=== PATIENT | male | born 1960 | race Caucasian/White ===

== ENCOUNTER 2021-03-28 09:53 | Emergency (ER) | payer OTHER, SELFPAY ==
--- NOTE | 2021-03-28 | ECG_ITS ---
Test Reason : CHEST PAIN Blood Pressure : / mmHG Vent. Rate : 088 BPM Atrial Rate : 072 BPM P-R Int : 000 ms QRS Dur : 124 ms QT Int : 376 ms P-R-T Axes : 000 050 034 degrees QTc Int : 454 ms Atrial fibrillation Right bundle branch block Abnormal ECG When compared with ECG of 22-DEC-2015 09:18, Atrial fibrillation has replaced Sinus rhythm Referred By: Generic ED Physician Electronically Signed By:PONCHO BERNAL MD
--- NOTE | ~2021-03-28 | XR_ITS ---
EXAMINATION: XR CHEST CLINICAL INFORMATION: SOB COMPARISON: Chest 03/21/2016 TECHNIQUE: Frontal view of the chest was obtained. FINDINGS: The lungs are well-expanded and clear of acute pneumonic process. There is focal linear stranding right upper lobe likely scarring or atelectasis. Heart size and pulmonary vascularity is normal. No gross bony abnormality seen. There is total right shoulder prosthesis and alignment. XR/XR chest 1V IMPRESSION: Focal linear atelectasis or chronic scarring right upper lobe is stable. No acute pneumonic process seen.
--- NOTE | ~2021-03-28 | CT_ITS ---
EXAMINATION: CTA CHEST CT ABDOMEN WITH CONTRAST CLINICAL INFORMATION: Tachycardia, elevated D-dimer. Left-sided abdominal pain. COMPARISON: None. TECHNIQUE: 5 mm thin axial and reformatted 3 mm thin sagittal, coronal and oblique images of chest were obtained following rapid IV 100 mL Omnipaque 350. Subsequently, 5 minutes and axial images of abdomen and pelvis and reconstructed 3 mm thin images of abdomen and pelvis were obtained without contrast. FINDINGS: CHEST: There is good opacification of pulmonary artery and its branches without intraluminal filling defect or narrowing. There is mild enlargement of left pulmonary artery likely secondary to pulmonary venous hypertension. The thoracic aorta is of normal caliber without any evidence of aneurysm. Mild atherosclerotic calcification is seen. The central trachea and the bronchi widely patent. No abnormal size mediastinal or hilar lymph nodes seen. There is mild centrilobular emphysematous changes of both lungs especially both upper lobes. There is a large bulla in the right upper lobe adjacent compressive atelectasis. No pulmonary nodule, mass or consolidation seen. There is no pleural effusion or thickening. The axilla and the chest wall appears unremarkable. ABDOMEN AND PELVIS: Visualized liver is normal size, contour and density. No intrahepatic ductal dilatation seen. No focal lesion seen. The gallbladder is unremarkable. Visualized spleen is normal size and density. Visualized pancreas and bilateral adrenal glands are unremarkable. Both kidneys are normal size, shape and contour. No enhancing lesion, cyst, radiopaque calculi or hydronephrosis seen. The abdominal aorta is normal caliber. No retroperitoneal mass or lymphadenopathy seen. There is scattered stool and gas seen throughout the colon without significant distention. The small bowel loops are normal caliber. The stomach is nondistended and appears unremarkable. There is no free air or free fluid. The abdominal wall appears unremarkable. Imaging of the pelvis reveals normal prostate gland. The urinary bladder is mildly distended. No free fluid seen. Bone windows reveal no lytic or sclerotic process seen. There are degenerative disc changes with vacuum disc phenomena and ventral spondylosis L4-L5 and L5-S1 disc level. CT/CT angio chest PE protocol IMPRESSION: No evidence of PE. No evidence of aortic dissection. Slightly enlarged left pulmonary artery suggestive of pulmonary venous hypertension or focal dilation. Centrilobular emphysema with a moderate-sized bullae in the right upper lobe and adjacent compressive atelectasis. Mild constipation without obstruction. No acute intra-abdominal process seen. Mild prostate enlargement.
[2021-03-28 10:11] VITALS: BP 141/74; PULSE 86; RESP 24; TEMP 36.8; O2SAT 98; BMI 23.0
[2021-03-28 10:18] VITALS: BP 141/74; PULSE 98; RESP 21; TEMP 36.9; O2SAT 100
--- NOTE | 2021-03-28 10:21 | PC.NURSE ---
Addendum entered by Blas Jo RN 03/28/21 10:59: lung sounds diminished throughout. The pt has bilateral LL redness, he reports that is his baseline. No edema noted. Iv line established, labs drawn, meds given as documented. xray at bedside. Awaiting lab results. Original Note: Pt alert and oriented x3, Pt reports chest pain/sob starting about a month ago he states it is worse starting this morning. He reports starting Eliquis this morning, he does not take any other meds. The pt also reports blurry vision both eyes.
--- NOTE | 2021-03-28 10:25 | ED_ITS ---
HPI - Chest Pain General Chief Complaint: Chest Pain Stated Complaint: sob Time Seen by Provider: 03/28/21 10:13 Source: patient and family Mode of arrival: ambulatory Limitations: no limitations History of Present Illness HPI narrative: 60-year-old male with a past medical history of COPD, alcohol abuse, AFib recently diagnosed on March 14 and started his 1st dose of Eliquis this morning here with acute on chronic chest discomfort with shortness of breath over the last 1-2 days. He tells me for the last few months he has had intermittent chest pain and shortness of breath which seems worsened with activity. He also has a chronic cough with productive yellow sputum. Over the last 1-2 days this has worsened or he feels like he is short of breath even without exertion. He denies any leg swelling or pain. No weight gain. He has had some lower abdominal discomfort for the last month and was seen by his primary care doctor. He tells me that he had an outpatient CT scan but never found out what the results were. He has no associated vomiting or diarrhea or urinary symptoms or fevers or chills with this. He does smoke cigarettes. He drinks 6-8 beers a day and his last drink was yesterday. MD complaint: chest pain and chest discomfort Related Data Previous Rx's Medication Instructions Recorded albuterol sulfate 2 puff INHALATION QID PRN #6.7 g 03/28/21 prednisone 40 mg PO DAILY #8 tab 03/28/21 Allergies Allergy/AdvReac Type Severity Reaction Status Date / Time No Known Allergies Allergy Unverified 06/16/20 15:05 [No Known Allergies*] Review of Systems Review of Systems: Yes all other systems are reviewed and are negative Constitutional: Constitutional: Reports no additional constitutional complaints, Denies body ache(s), Denies chills, Denies fever(s), Denies headache(s) and Denies weakness Eyes: Eyes: Reports no additional eye complaints and Denies change in vision ENT: Reports system reviewed and no additional complaints, except as documented, Denies dizziness, Denies headache(s), Denies nasal congestion, Denies nasal discharge and Denies neck pain Cardiovascular: Cardiovascular: Reports no additional cardiovascular complaints, Reports chest pain, Denies leg edema and Reports dyspnea Respiratory: Respiratory: Reports no additional respiratory complaints, Reports cough and Reports dyspnea Gastrointestinal: Gastrointestinal: Reports no additional gastrointestinal complaints, Reports abdominal pain, Denies diarrhea, Denies nausea and Denies vomiting Genitourinary: Genitourinary: Denies urinary incontinence Musculoskeletal: Musculoskeletal: Reports no additional musculoskeletal complaints, Denies back pain, Denies arthralgias, Denies joint swelling, Denies neck pain, Denies numbness and Denies tingling Integumentary/Breasts: Skin/Breast: Reports system reviewed and no additional complaints, except as docu and Denies rash Neurologic: Reports system reviewed and no additional complaints, except as documented, Denies Abnormal speech present, Denies dizziness, Denies headache(s) , Denies numbness, Denies tingling and Denies weakness PMFSH Past Medical History Attestation statement: The following information was validated with the patient. Source: old records reviewed and nursing notes reviewed Medical History (Updated 03/28/21 @ 14:47 by Johanne Galarza NP) Afib Alcohol abuse COPD (chronic obstructive pulmonary disease) Social History Social History (Updated 03/28/21 @ 10:28 by Johanne Galarza NP) Alcohol intake: current Alcohol intake frequency: 3 or more drinks per day Alcohol type: beer Patient Tobacco Use Status: Current everyday Tobacco user Advance Directives: No Advance Directives Information Provided: No Physical Exam Vital Signs: Vital Signs: Last Vital Signs Temp 98.4 F 03/28/21 10:18 Pulse 88 03/28/21 13:11 Resp 13 03/28/21 13:11 BP 137/71 03/28/21 13:11 Pulse Ox 98 03/28/21 13:11 Body Mass Index 23.0 Const: General: poor hygiene and tired appearing Orientation/consciousness: patient oriented x3 Limitations: no limitations HENMT: Head: Yes normal to inspection Ears: hearing grossly normal bilaterally General nose exam: Normal external nose present Face and sinus: Yes normal facial exam Mouth: Normal oral and palatal mucosa present Throat: Yes posterior oropharynx normal Eyes: General: appearance normal, both eyes and all related structures Pupils: Equal, round and reactive pupils present Neck: Neck: Yes normal visual inspection Chest: Chest palpation & inspection: normal inspection of the chest and tenderness (central chest tender to palp) Resp: Other: Tachypnea noted, speaking short phrases, prolonged expirations, mild expiratory wheezing Cardio: Rate: regular rate Rhythm: regular rhythm Peripheral pulses: Peripheral pulses 2+ throughout GI: Inspection: Yes normal to inspection Palpation (GI): Soft to palpation, Tenderness to palpation present (GI) ( bilateral lower quadrant tenderness with no rebound) and Guarding due to palpation present (GI) Auscultation: normal bowel sounds Back/Spine/Pelvis: Thoracic/Lumbar Spine: thoracic and lumbar spine normal to inspection Skin: General skin exam: no rashes or lesions noted Neuro: General: patient oriented x3, no focal motor deficits and normal sensation to monofilament Cranial nerves: Yes Equal, round and reactive pupils present Cognition (Neuro): normal cognition Speech: No Abnormal speech present Gait exam (Neuro): Normal gait present Motor exam (neuro): 5/5 motor strength present throughout Extrem: Other: lower extremity discoloration noted consistent with peripheral vascular disease General: Yes normal to inspection, Yes no pedal edema and Yes no calf tenderness Course Course Course Narrative: 60-year-old male here with acute on chronic chest pain, shortness of breath, productive cough for the last 1-2 days with a recent diagnosis of AFib this month. Took his 1st dose of Eliquis this morning. He tells me he is here because his shortness of breath is much worsened over the last 24 hours for now he feels short of breath even at rest. Also complaining of some lower abdominal discomfort which she has had for approximately a month with no other symp\toms. On arrival the patient is tachypneic, stable saturations, prolonged expirations, mild exp wheezing, also bilateral LQ adominal pain on exam with guarding. will need labs, EKG, chest x-ray, COVID screen, CTA, CT A/P. will give DuoNeb, Solu-Medrol, analgesia. 1430- CTs negative with exception of emphysema changes and likely pulmonary hypertension. Labs show mildly elevated lactic acid which is from albuterol use and not infection. Improved with recheck. COVID screen negative. EKG shows no ischemic changes. Troponin x2 delta. likely COPD exacerbation. Will discharge patient home with course of prednisone. He did ambulate in the emergency department with no tachypnea and an oxygen saturation of greater than 96%. He is feeling much improved. R ecommended following up with his wellness consultant. Reviewed worrisome signs and symptoms and when to return to the emergency department. Comfortable discharge home. MDM - Chest Pain MDM Narrative Medical decision making narrative: ACS, pneumonia, CHF, PE, Divert Medical Records Data Attestation: I reviewed the patient's medical records. Lab Data Attestation: I reviewed the patient's lab results. Result diagrams: 03/28/21 10:37 03/28/21 10:37 Labs: Lab Results 03/28/21 03/28/21 03/28/21 Range/Units 10:37 10:37 10:37 WBC 4.5 L (4.8-10.8) X10*3/uL RBC 3.90 L (4.60-5.80) X10*6/uL Hgb 14.4 (14.0-18.0) g/dl Hct 41.3 L (42-52) % MCV 105.9 H (80-98) fL MCH 36.9 H (27.0-33.0) pg MCHC 34.9 (31.0-36.0) g/dl RDW 12.6 (11.0-16.0) % Plt Count 152 L (160-400) X10*3/uL MPV 8.8 L (9.4-12.4) fL Immature Gran % (Auto) 0.2 (0.0-0.4) % Neut % (Auto) 65.6 (45-73) % Lymph % (Auto) 25.6 (20-40) % [place] % (Auto) 7.3 (2-11) % Eos % (Auto) 0.2 (0-4) % Baso % (Auto) 1.1 (0-2) % Lymph # (Auto) 1.2 (1.2-4.9) X10*3/uL [place] # (Auto) 0.3 (0.1-1.2) X10*3/uL Eos # (Auto) 0.0 (0.0-0.4) X10*3/uL Baso # (Auto) 0.1 (0.0-0.2) X10*3/uL Abs Immat Gran (auto) 0.01 (0.00-0.03) X10*3/uL Absolute Neuts (auto) 3.0 (2.0-8.3) X10*3/uL Absolute Nucleated RBC 0.000 (0.0-0.012) X10*3/uL Nucleated RBC % (auto) 0.0 (0.0-0.2) /100WBC PT (10.8-13.0) SEC INR (0.9-1.1) D-Dimer NG/ML Sodium 139 (135-145) mmol/L Potassium 4.0 (3.3-5.1) mmol/L Chloride 102 (96-108) mmol/L Carbon Dioxide 26 (22-29) mmol/L Anion Gap 15 (12-20) BUN 5 L (9-16) mg/dL Creatinine 0.76 (0.5-1.4) mg/dL Estim Creat Clear Calc 111.3 Estimated GFR > 60 Random Glucose 121 H (60-115) mg/dL Lactic Acid (0.5-2.0) mmol/L Lactic Acid Fup @ 2Hr (0.5-2.0) mmol/L Calcium 9.6 (8.4-10.2) mg/dL Magnesium (1.6-2.6) mg/dL Total Bilirubin 0.8 (0.0-1.0) mg/dL Direct Bilirubin 0.3 (0.0-0.5) mg/dL AST 89 H (5-37) U/L ALT 62 H (0-40) U/L Alkaline Phosphatase 62 (39-117) U/L Troponin I High Sens (<3.5-35.0) ng/L B-Natriuretic Peptide (<100) pg/mL Total Protein 7.6 (6.5-8.0) g/dL Albumin 4.2 (3.5-5.0) g/dL Lipase (8-78) U/L Ethyl Alcohol mg/dL COVID-19 ([facility]) Negative (Negative) COVID-19 Clin Com See Note 03/28/21 03/28/21 03/28/21 Range/Units 10:37 10:37 10:37 WBC (4.8-10.8) X10*3/uL RBC (4.60-5.80) X10*6/uL Hgb (14.0-18.0) g/dl Hct (42-52) % MCV (80-98) fL MCH (27.0-33.0) pg MCHC (31.0-36.0) g/dl RDW (11.0-16.0) % Plt Count (160-400) X10*3/uL MPV (9.4-12.4) fL Immature Gran % (Auto) (0.0-0.4) % Neut % (Auto) (45-73) % Lymph % (Auto) (20-40) % [place] % (Auto) (2-11) % Eos % (Auto) (0-4) % Baso % (Auto) (0-2) % Lymph # (Auto) (1.2-4.9) X10*3/uL [place] # (Auto) (0.1-1.2) X10*3/uL Eos # (Auto) (0.0-0.4) X10*3/uL Baso # (Auto) (0.0-0.2) X10*3/uL Abs Immat Gran (auto) (0.00-0.03) X10*3/uL Absolute Neuts (auto) (2.0-8.3) X10*3/uL Absolute Nucleated RBC (0.0-0.012) X10*3/uL Nucleated RBC % (auto) (0.0-0.2) /100WBC PT 15.0 H (10.8-13.0) SEC INR 1.3 H (0.9-1.1) D-Dimer 311 NG/ML Sodium (135-145) mmol/L Potassium (3.3-5.1) mmol/L Chloride (96-108) mmol/L Carbon Dioxide (22-29) mmol/L Anion Gap (12-20) BUN (9-16) mg/dL Creatinine (0.5-1.4) mg/dL Estim Creat Clear Calc Estimated GFR Random Glucose (60-115) mg/dL Lactic Acid 2.9 H* (0.5-2.0) mmol/L Lactic Acid Fup @ 2Hr (0.5-2.0) mmol/L Calcium (8.4-10.2) mg/dL Magnesium 1.8 (1.6-2.6) mg/dL Total Bilirubin (0.0-1.0) mg/dL Direct Bilirubin (0.0-0.5) mg/dL AST (5-37) U/L ALT (0-40) U/L Alkaline Phosphatase (39-117) U/L Troponin I High Sens (<3.5-35.0) ng/L B-Natriuretic Peptide (<100) pg/mL Total Protein (6.5-8.0) g/dL Albumin (3.5-5.0) g/dL Lipase 14 (8-78) U/L Ethyl Alcohol mg/dL COVID-19 ([facility]) (Negative) COVID-19 Clin Com 03/28/21 03/28/21 03/28/21 Range/Units 10:37 10:37 13:25 WBC (4.8-10.8) X10*3/uL RBC (4.60-5.80) X10*6/uL Hgb (14.0-18.0) g/dl Hct (42-52) % MCV (80-98) fL MCH (27.0-33.0) pg MCHC (31.0-36.0) g/dl RDW (11.0-16.0) % Plt Count (160-400) X10*3/uL MPV (9.4-12.4) fL Immature Gran % (Auto) (0.0-0.4) % Neut % (Auto) (45-73) % Lymph % (Auto) (20-40) % [place] % (Auto) (2-11) % Eos % (Auto) (0-4) % Baso % (Auto) (0-2) % Lymph # (Auto) (1.2-4.9) X10*3/uL [place] # (Auto) (0.1-1.2) X10*3/uL Eos # (Auto) (0.0-0.4) X10*3/uL Baso # (Auto) (0.0-0.2) X10*3/uL Abs Immat Gran (auto) (0.00-0.03) X10*3/uL Absolute Neuts (auto) (2.0-8.3) X10*3/uL Absolute Nucleated RBC (0.0-0.012) X10*3/uL Nucleated RBC % (auto) (0.0-0.2) /100WBC PT (10.8-13.0) SEC INR (0.9-1.1) D-Dimer NG/ML Sodium (135-145) mmol/L Potassium (3.3-5.1) mmol/L Chloride (96-108) mmol/L Carbon Dioxide (22-29) mmol/L Anion Gap (12-20) BUN (9-16) mg/dL Creatinine (0.5-1.4) mg/dL Estim Creat Clear Calc Estimated GFR Random Glucose (60-115) mg/dL Lactic Acid (0.5-2.0) mmol/L Lactic Acid Fup @ 2Hr (0.5-2.0) mmol/L Calcium (8.4-10.2) mg/dL Magnesium (1.6-2.6) mg/dL Total Bilirubin (0.0-1.0) mg/dL Direct Bilirubin (0.0-0.5) mg/dL AST (5-37) U/L ALT (0-40) U/L Alkaline Phosphatase (39-117) U/L Troponin I High Sens 31.0 25.5 (<3.5-35.0) ng/L B-Natriuretic Peptide 133 H (<100) pg/mL Total Protein (6.5-8.0) g/dL Albumin (3.5-5.0) g/dL Lipase (8-78) U/L Ethyl Alcohol 45 mg/dL COVID-19 ([facility]) (Negative) COVID-19 Clin Com 03/28/21 Range/Units 13:25 WBC (4.8-10.8) X10*3/uL RBC (4.60-5.80) X10*6/uL Hgb (14.0-18.0) g/dl Hct (42-52) % MCV (80-98) fL MCH (27.0-33.0) pg MCHC (31.0-36.0) g/dl RDW (11.0-16.0) % Plt Count (160-400) X10*3/uL MPV (9.4-12.4) fL Immature Gran % (Auto) (0.0-0.4) % Neut % (Auto) (45-73) % Lymph % (Auto) (20-40) % [place] % (Auto) (2-11) % Eos % (Auto) (0-4) % Baso % (Auto) (0-2) % Lymph # (Auto) (1.2-4.9) X10*3/uL [place] # (Auto) (0.1-1.2) X10*3/uL Eos # (Auto) (0.0-0.4) X10*3/uL Baso # (Auto) (0.0-0.2) X10*3/uL Abs Immat Gran (auto) (0.00-0.03) X10*3/uL Absolute Neuts (auto) (2.0-8.3) X10*3/uL Absolute Nucleated RBC (0.0-0.012) X10*3/uL Nucleated RBC % (auto) (0.0-0.2) /100WBC PT (10.8-13.0) SEC INR (0.9-1.1) D-Dimer NG/ML Sodium (135-145) mmol/L Potassium (3.3-5.1) mmol/L Chloride (96-108) mmol/L Carbon Dioxide (22-29) mmol/L Anion Gap (12-20) BUN (9-16) mg/dL Creatinine (0.5-1.4) mg/dL Estim Creat Clear Calc Estimated GFR Random Glucose (60-115) mg/dL Lactic Acid (0.5-2.0) mmol/L Lactic Acid Fup @ 2Hr 1.6 (0.5-2.0) mmol/L Calcium (8.4-10.2) mg/dL Magnesium (1.6-2.6) mg/dL Total Bilirubin (0.0-1.0) mg/dL Direct Bilirubin (0.0-0.5) mg/dL AST (5-37) U/L ALT (0-40) U/L Alkaline Phosphatase (39-117) U/L Troponin I High Sens (<3.5-35.0) ng/L B-Natriuretic Peptide (<100) pg/mL Total Protein (6.5-8.0) g/dL Albumin (3.5-5.0) g/dL Lipase (8-78) U/L Ethyl Alcohol mg/dL COVID-19 ([facility]) (Negative) COVID-19 Clin Com Imaging Data Chest x-ray: Attestation: I personally reviewed and interpreted this imaging study as follows: Radiologist's impression: FINDINGS: The lungs are well-expanded and clear of acute pneumonic process. There is focal linear stranding right upper lobe likely scarring or atelectasis. Heart size and pulmonary vascularity is normal. No gross bony abnormality seen. There is total right shoulder prosthesis and alignment. XR/XR chest 1V IMPRESSION: Focal linear atelectasis or chronic scarring right upper lobe is stable. No acute pneumonic process seen. Ct scan chest/abdomen: Attestation: I personally reviewed and interpreted this imaging study as follows: Radiologist's impression: MPRESSION: No evidence of PE. No evidence of aortic dissection. Slightly enlarged left pulmonary artery suggestive of pulmonary venous hypertension or focal dilation. Centrilobular emphysema with a moderate-sized bullae in the right upper lobe and adjacent compressive atelectasis. Mild constipation without obstruction. No acute intra-abdominal process seen. Mild prostate enlargement. ECG Data ECG #1: Attestation: I personally reviewed and interpreted this ECG as follows: ECG interpretation date: 03/28/21 ECG interpretation time: 10:03 Interpretation: AFib with rate of 88, right bundle branch block, normal QT Discharge Plan Discharge Clinical Impression: COPD (chronic obstructive pulmonary disease), Abdominal pain Patient Disposition: Home, Self-Care Instructions: COPD (Chronic Obstructive Pulmonary Disease) (ED), Abdominal Pain (ED) Additional Instructions: your CT scan shows COPD your abdominal CT scan looks negative your lab work looks okay start prednisone tomorrow continue your daily inhaler but use the rescue inhaler as needed follow-up with your wellness consultant and primary care doctor Prescriptions: New prednisone 20 mg tablet 40 mg PO DAILY Qty: 8 RF: 0 albuterol sulfate 90 mcg/actuation HFA aerosol inhaler 2 puff inhalation QID PRN (Reason: shortness of breath or wheezing) Qty: 6.7 RF: 0 Referrals: Soraida Talamantes MD [Primary Care Provider] - 2 days Interventions: ED Discharge Assessment Last Done: 03/28/21 15:10 Discharge Date/Time: 03/28/21 15:11
[2021-03-28] MEDS: Albuterol/Iprat 2.5/0.5MG 3 ML AMPUL.NEB INHALE (10:34)
[2021-03-28 10:36] VITALS: PULSE 91; O2SAT 98
[2021-03-28 10:47] LABS: MANUAL DIFF FLAG NO
[2021-03-28 10:52] LABS: Basophils Absolute Auto 0.1 X10*3/uL (0.0-0.2); Basophils Percent Auto 1.1 % (0-2); Eosinophils Percent Auto 0.2 % (0-4); Hematocrit 41.3 % (42-52); Hemoglobin 14.4 g/dl (14.0-18.0); Imm Gran Abs Auto 0.01 X10*3/uL (0.00-0.03); Imm Gran Pct Auto 0.2 % (0.0-0.4); Lymphocytes Absolute Auto 1.2 X10*3/uL (1.2-4.9); Lymphocytes Percent Auto 25.6 % (20-40); Mean Corpuscular HGB Conc 34.9 g/dl (31.0-36.0); Mean Corpuscular Hemoglobin 36.9 pg (27.0-33.0); Mean Corpuscular Volume 105.9 fL (80-98); Mean Platelet Volume 8.8 fL (9.4-12.4); Monocytes Absolute Auto 0.3 X10*3/uL (0.1-1.2); Monocytes Percent Auto 7.3 % (2-11); Neutrophils Percent Auto 65.6 % (45-73); Platelet Count 152 X10*3/uL (160-400); Red Cell Distribution Width 12.6 % (11.0-16.0); White Blood Count 4.5 X10*3/uL (4.8-10.8)
[2021-03-28] MEDS: methylPREDNISolone Sod Succ 125 MG/2 ML VIAL IVPUSH (10:52)
[2021-03-28] MEDS: Morphine Sulfate 4 MG/ML CARTRIDGE IVPUSH (10:52)
[2021-03-28 10:55] LABS: INTERNATIONAL NORM RATIO 1.3 (0.9-1.1)
[2021-03-28 10:58] LABS: D Dimer 311 NG/ML
[2021-03-28 11:07] LABS: Ethanol 45 mg/dL
[2021-03-28 11:08] LABS: COVID-19 Test Negative (Negative); IDNOW Serial# 9DD0AD1C
[2021-03-28 11:11] LABS: Alanine Aminotransferase 62 U/L (0-40); Albumin Level 4.2 g/dL (3.5-5.0); Alkaline Phosphatase 62 U/L (39-117); Anion Gap 15 (12-20); Aspartate Amino Transferase 89 U/L (5-37); Bilirubin Direct 0.3 mg/dL (0.0-0.5); Bilirubin Total 0.8 mg/dL (0.0-1.0); Blood Urea Nitrogen 5 mg/dL (9-16); Calcium 9.6 mg/dL (8.4-10.2); Carbon Dioxide 26 mmol/L (22-29); Chloride 102 mmol/L (96-108); Creatinine Clr Calc Pharmacy 111.3; Estimated Glomerular Filt Rate > 60; Glucose Random 121 mg/dL (60-115); Sodium 139 mmol/L (135-145); Total Protein 7.6 g/dL (6.5-8.0)
[2021-03-28 11:12] LABS: Lipase 14 U/L (8-78); Magnesium 1.8 mg/dL (1.6-2.6)
[2021-03-28 11:13] LABS: Lactic Acid 2.9 mmol/L (0.5-2.0)
[2021-03-28 11:14] LABS: B Type Natriuretic Peptide 133 pg/mL (<100)
[2021-03-28] MEDS: 0.9 % Sodium Chloride 1,000 ML 999 ML IV (11:44)
[2021-03-28 11:46] VITALS: BP 121/73; PULSE 93; RESP 22; O2SAT 96
[2021-03-28 12:44] LABS: Reflex Lactate? Lactic Acid Added
[2021-03-28] MEDS: iohexoL 350 MG/ML 100 ML INFUS..BTL 85 ML IV (12:49)
[2021-03-28 13:11] VITALS: BP 137/71; PULSE 88; RESP 13; O2SAT 98
[2021-03-28 13:46] LABS: ~Lactic Acid-LAB USE ONLY 1.6 mmol/L (0.5-2.0)
[2021-03-28 13:55] LABS: Troponin-I High Sensitivity 25.5 ng/L (<3.5-35.0)
== END 2021-03-28 15:11 | disposition home or self-care (01) ==
PROVIDERS: Nurse Practitioner Family; Emergency Provider Emergency Medicine Emergency Medical Services; PCP Internal Medicine
DX: J44.9 Chronic obstructive pulmonary disease, unspecified (principal); R06.02 Shortness of breath; R10.9 Unspecified abdominal pain; I48.91 Unspecified atrial fibrillation; F17.210 Nicotine dependence, cigarettes, uncomplicated; Z79.899 Other long term (current) drug therapy; Z20.822 Contact with and (suspected) exposure to COVID-19
CPT/HCPCS: 36415; 71045; 71275; 74177; 80048; 80076; 82077; 83605; 83690; 83735; 83880; 84484; 85025; 85379; 85610; 87040; 87635; 93005; 94640; 96361; 96374; 96375; 99285; J2270; J2930; Q9967

== ENCOUNTER 2022-11-22 16:36 | Emergency (ER) | payer MEDICARE, MEDICAID, SELFPAY ==
--- NOTE | ~2022-11-22 | CT_ITS ---
EXAMINATION: GI BLEED WITH AND WITHOUT IV CONTRAST CLINICAL INFORMATION: Blood per rectum. Abdominal pain. COMPARISON: Previous CT of the abdomen and pelvis most recent February 2021 TECHNIQUE: Axial images through the abdomen and pelvis without IV contrast. Axial images through the abdomen and pelvis following following IV contrast and arterial phase and delayed two-minute imaging following IV contrast was performed. This CT examination was performed using dose optimization techniques as appropriate, variously including the following: *Automated exposure control *Adjustment of mA and/or kV according to patient size (this includes techniques or standardized protocols for targeted exams where dose is matched to indication/reason for exam; i.e. extremities or head) *Use of iterative reconstruction technique FINDINGS: There is active GI bleeding seen in the right side of the distal sigmoid colon or upper rectum for example axial image 74 series 7. Delayed images in this region demonstrate increased enhancement. There is mild wall thickening seen in this region. Small and large bowel is otherwise unremarkable. The appendix is unremarkable. 12 mm nodule at the right lung base axial image 11 series 13. The liver is low in attenuation suggestive of fatty infiltration. No focal liver lesion or biliary duct dilatation. Normal gallbladder. Normal spleen. Normal pancreas. Normal adrenal glands and kidneys. Severe atherosclerotic disease. No aneurysm. No ascites or adenopathy. No hernia. Review of bone windows demonstrates degenerative changes of the spine and scoliosis. CT/CT gi bleed abd pel wo/w IVcon IMPRESSION: Active GI bleeding in the distal sigmoid colon or upper rectum. 12 mm nodule in the right lower lobe adjacent to the diaphragm. Follow-up chest CT scan recommended. Findings were communicated to Dr. Peace by telephone on 09/21/2023 8:12 PM
--- NOTE | 2022-11-22 16:40 | ED_ITS ---
HPI - General Adult General Chief complaint: Abdominal Pain <Mary Ruiz CNP - Last Filed: 11/22/22 16:44> Stated complaint: bloody stools <Mary Ruiz CNP - Last Filed: 11/22/22 16:44> Time Seen by Provider: 11/22/22 19:59 <Mary Ruiz CNP - Last Filed: 11/22/22 16:44> Source: patient <Darek Peace MD - Last Filed: 11/22/22 21:55> Mode of arrival: ambulatory <Darek Peace MD - Last Filed: 11/22/22 21:55> Limitations: no limitations <Darek Peace MD - Last Filed: 11/22/22 21:55> History of Present Illness HPI narrative: 62-year-old male who presents emergency department for evaluation of 4 episodes of bright red blood per rectum. The patient is on Eliquis for atrial fibrillation. He states this is 1st episode was at 02:30 hours. He states that he woke up and there was blood on his bed sheets. He states the 2nd episode was around 06:00 hours, when he went to the bathroom he states that he had a large amount of bright red blood in the toilet bowl. He had 2 more episodes and then came to the emergency department for evaluation. The patient does take Eliquis for atrial fibrillation and he did take his dose at 06:00 hours. he states that he was feeling lightheaded, dizzy and anxious. He denied abdominal pain. This is 1st episode of a GI bleed. <Darek Peace MD - Last Filed: 11/22/22 21:55> Related Data Home medications: Previous Rx's Medication Instructions Recorded albuterol sulfate 90 mcg/actuation 2 puff inhalation QID PRN 03/28/21 aerosol inhaler shortness of breath or wheezing #6.7 grams prednisone 20 mg tablet 40 mg PO DAILY #8 tabs 03/28/21 <Mary Ruiz CNP - Last Filed: 11/22/22 16:44> Allergies/adverse reactions: Allergies Allergy/AdvReac Type Severity Reaction Status Date / Time No Known Allergies Allergy Unverified 06/16/20 15:05 [No Known Allergies*] <Mary Ruiz CNP - Last Filed: 11/22/22 16:44> Review of Systems Review of Systems: Yes all other systems are reviewed and are negative <Darek Peace MD - Last Filed: 11/22/22 21:55> [facility] Past Medical History [facility] Narrative: Social history: Patient smokes 1/2 pack of cigarettes per day times 40 years. He drinks 3-4 beers per day. He smokes marijuana daily. <Darek Peace MD - Last Filed: 11/22/22 21:55> Medical History: Medical History (Updated 11/22/22 @ 21:55 by Darek Peace MD) Afib Alcohol abuse COPD (chronic obstructive pulmonary disease) <Mary Ruiz CNP - Last Filed: 11/22/22 16:44> Social History Social History: Social History (Updated 03/28/21 @ 10:28 by Johanne Kapadia NP) Alcohol intake: current Alcohol intake frequency: 3 or more drinks per day A lcohol type: beer Patient Tobacco Use Status: Current everyday Tobacco user Advance Directives: No Advance Directives Information Provided: No <Mary Ruiz CNP - Last Filed: 11/22/22 16:44> Physical Exam ED Vital Signs: Vital Signs - 24 hr 11/22/22 16:41 11/22/22 17:14 11/22/22 17:54 Temperature 98.3 F Pulse Rate 91 93 88 Respiratory Rate 16 16 18 Blood Pressure 150/81 H 113/60 Pulse Oximetry 97 96 96 Oxygen Delivery Method Room Air Room Air Room Air 11/22/22 18:35 11/22/22 21:06 Temperature Pulse Rate 92 92 Respiratory Rate 14 18 Blood Pressure 122/71 136/82 Pulse Oximetry 97 97 Oxygen Delivery Method Room Air Room Air BMI result Body Mass Index 24.4 <Mary Ruiz CNP - Last Filed: 11/22/22 16:44> Vital Signs - 24 hr 11/22/22 16:41 11/22/22 17:14 11/22/22 17:54 Temperature 98.3 F Pulse Rate 91 93 88 Respiratory Rate 16 16 18 Blood Pressure 150/81 H 113/60 Pulse Oximetry 97 96 96 Oxygen Delivery Method Room Air Room Air Room Air 11/22/22 18:35 11/22/22 21:06 Temperature Pulse Rate 92 92 Respiratory Rate 14 18 Blood Pressure 122/71 136/82 Pulse Oximetry 97 97 Oxygen Delivery Method Room Air Room Air BMI result Body Mass Index 24.4 <Darek Peace MD - Last Filed: 11/22/22 21:55> Const General: cooperative and no acute distress <Darek Peace MD - Last Filed: 11/22/22 21:55> Orientation/consciousness: oriented to person and oriented to place <Darek Peace MD - Last Filed: 11/22/22 21:55> Limitations: no limitations <Darek Peace MD - Last Filed: 11/22/22 21:55> HENMT Head: Yes normal to inspection, Yes normocephalic and Yes atraumatic <Darek Peace MD - Last Filed: 11/22/22 21:55> Ears: external ears normal <Darek Peace MD - Last Filed: 11/22/22 21:55> General nose exam: Normal external nose present <Darek Peace MD - Last Filed: 11/22/22 21:55> Face and sinus: Yes normal facial exam <Darek Peace MD - Last Filed: 11/22/22 21:55> Mouth: Normal oral and palatal mucosa present <Darek Peace MD - Last Filed: 11/22/22 21:55> Throat: Yes posterior oropharynx normal <Darek Peace MD - Last Filed: 11/22/22 21:55> Eyes General: appearance normal, both eyes and all related structures <Darek Peace MD - Last Filed: 11/22/22 21:55> Pupils: Equal, round and reactive pupils present <Darek Peace MD - Last Filed: 11/22/22 21:55> Neck Neck: Yes normal visual inspection, Yes no lymphadenopathy, Yes trachea midline and Yes supple <Darek Peace MD - Last Filed: 11/22/22 21:55> Chest Chest palpation & inspection: normal inspection of the chest and normal palpation of entire chest wall <Darek Peace MD - Last Filed: 11/22/22 21:55> Resp Effort & Inspection: normal respiratory effort and able to speak in complete sentences <Darek Peace MD - Last Filed: 11/22/22 21:55> Auscultation: clear to auscultation bilaterally <Darek Peace MD - Last Filed: 11/22/22 21:55> Cardio Rate: regular rate <Darek Peace MD - Last Filed: 11/22/22 21:55> Rhythm: regular rhythm <Darek Peace MD - Last Filed: 11/22/22 21:55> Heart sounds: S1 normal heart sound present, S2 normal heart sound present and no m urmurs <Darek Peace MD - Last Filed: 11/22/22 21:55> GI Inspection: Yes normal to inspection <Darek Peace MD - Last Filed: 11/22/22 21:55> Palpation (GI): Soft to palpation, nontender and no guarding <Darek Peace MD - Last Filed: 11/22/22 21:55> Auscultation: normal bowel sounds <Darek Peace MD - Last Filed: 11/22/22 21:55> Rectal Exam - Male: Yes normal sphincter tone and Yes heme positive stool ( Bright red blood) <Darek Peace MD - Last Filed: 11/22/22 21:55> General: Yes no CVA tenderness <Darek Peace MD - Last Filed: 11/22/22 21:55> Back/Spine/Pelvis Back: no CVA tenderness <Darek Peace MD - Last Filed: 11/22/22 21:55> Skin General skin exam: no rashes or lesions noted <Darek Peace MD - Last Filed: 11/22/22 21:55> Neuro General: oriented to person and oriented to place <Darek Peace MD - Last Filed: 11/22/22 21:55> Cranial nerves: Yes CN's II-XII intact bilaterally and Yes Equal, round and reactive pupils present <Darek Peace MD - Last Filed: 11/22/22 21:55> Cognition (Neuro): normal cognition <Darek Peace MD - Last Filed: 11/22/22 21:55> Motor exam (neuro): 5/5 motor strength present throughout <Darek Peace MD - Last Filed: 11/22/22 21:55> Extrem General: Yes normal to inspection <Darek Peace MD - Last Filed: 11/22/22 21:55> Psych Appearance: grossly normal <Darek Peace MD - Last Filed: 11/22/22 21:55> Speech and movement: Normal speech and movement present <Darek Peace MD - Last Filed: 11/22/22 21:55> Affect: normal affect <Darek Peace MD - Last Filed: 11/22/22 21:55> Attitude: cooperative <Darek Peace MD - Last Filed: 11/22/22 21:55> Thought process: Normal thought process present <Darek Peace MD - Last Filed: 11/22/22 21:55> Thought content: Normal thought content present <Darek Peace MD - Last Filed: 11/22/22 21:55> Course Course Course Narrative: This is an RME: Additional HPI, ROS, PE not included below will be deferred to primary provider. Patient is a 62-year-old male COPD, emphysema, A- fib who presents to emergency department Reports bright red blood per rectum since 023, has been occurring throughout the day even during periods when he is not having a bowel movement. Has had some dark stools throughout the day as well. Denies any history of this having happened in the past. Has associated mid ABD pain. Denies constipation diarrhea. States he is on Eliquis for AFib. Denies hematuria, bleeding gums, unexplained bruising. Denies fevers or chills. Plan: labs, occult stool, will require rectal examination, CT ABD/ pelvis <Mary Ruiz CNP - Last Filed: 11/22/22 16:44> Medications Administered Discontinued Medications Generic Name Dose Route Start Last Admin Trade Name Freq PRN Reason Stop Dose Admin Prothrombin Complex Concent ( 80 mls @ 480 mls/hr 11/22/22 20:31 11/22/22 21:08 Human) 2,000 unit/ IV IV 11/22/22 20:40 Infused Miscellaneous Supplies .Q10M ONE Infusion Iohexol 100 ml 11/22/22 19:34 11/22/22 19:35 Iohexol 350 Mg/Ml 100 Ml Infus..Btl IV 11/22/22 19:35 80 ml ONCE ONE Administration <Mary Ruiz CNP - Last Filed: 11/22/22 16:44> Medications Administered Discontinued Medications Generic Name Dose Route Start Last Admin Trade Name Freq PRN Reason Stop Dose Admin Prothrombin Complex Concent ( 80 mls @ 480 mls/hr 11/22/22 20:31 11/22/22 21:08 Human) 2,000 unit/ IV IV 11/22/22 20:40 Infused Miscellaneous Supplies .Q10M ONE Infusion Iohexol 100 ml 11/22/22 19:34 11/22/22 19:35 Iohexol 350 Mg/Ml 100 Ml Infus..Btl IV 11/22/22 19:35 80 ml ONCE ONE Administration <Darek Peace MD - Last Filed: 11/22/22 21:55> Medical Decision Making Medical Decision Making MDM Narrative: 62-year-old male who presents emergency department for evaluation of 4 episodes of bright red blood per rectum since 02:30 hours, lightheadedness, dizziness on Eliquis for atrial fibrillation. Physical examination revealed no abdominal tenderness but the patient did have bright red blood per rectum. labs and CT scan of the abdomen pelvis with IV contrast were ordered by provider at triage. 2147: My independent interpretation of the patient's laboratory evaluation is as follows: H&H done at 11:17 hours was 12.3 and 35.4. Repeat H&H 3-1/2 hours later at 20:46 hours was 11 and 34 which did not represent a significant change. CMP revealed an elevated AST of 51 otherwise was unremarkable with normal BUN of 7. PT/INR elevated at 13.9 and 1.2. PTT was normal. Urinalysis was normal. COVID-[address] scan of the abdomen pelvis with IV contrast was interpreted by the radiologist as active GI bleed seen in the right side of the distal sigmoid colon and upper rectum. I did discuss this finding over tiger text with our covering assurance specialist, Dr. Schofield who recommended that the patient be transferred to a tertiary care facility for urgent angiogram by IR for control of bleeding. I also discussed reversal of Eliquis with our pharmacist who recommended giving Kcentra 2000 units IV and this was ordered. I did contact multiple hospitals including [facility] and [facility] and they are closed to transfer. I did contact [facility] transfer line and the patient has been accepted as an ED to ED transfer to [facility]. Accepting physician is Dr. Gonzalez. <Darek Peace MD - Last Filed: 11/22/22 21:55> Lab Data MDM Lab Attestation statement: I reviewed the patient's lab results. <Darek Peace MD - Last Filed: 11/22/22 21:55> [facility] [place] for my discussion <Darek Peace MD - Last Filed: 11/22/22 21:55> Result Diagrams: 11/22/22 17:11 11/22/22 17:11 <Mary Ruiz CNP - Last Filed: 11/22/22 16:44> Labs: Lab Results 11/22/22 11/22/22 11/22/22 Range/Units 17:11 17:11 17:11 WBC 4.3 L (4.8-10.8) X10*3/uL RBC 3.39 L (4.60-5.80) X10*6/uL Hgb 12.3 L (14.0-18.0) g/dl Hct 35.4 L (42.0-52.0) % MCV 104.4 H (80.0-98.0) fL MCH 36.3 H (27.0-33.0) pg MCHC 34.7 (31.0-36.0) g/dl RDW 12.8 (11.0-16.0) % Plt Count 117 L (160-400) X10*3/uL MPV 8.9 L (9.4-12.4) fL Immature Gran % (Auto) 0.2 (0.0-0.4) % Neut % (Auto) 57.4 (45-73) % Lymph % (Auto) 29.3 (20-40) % [place] % (Auto) 10.5 (2-11) % Eos % (Auto) 1.9 (0-4) % Baso % (Auto) 0.7 (0-2) % Lymph # (Auto) 1.3 (1.2-4.9) X10*3/uL [place] # (Auto) 0.5 (0.1-1.2) X10*3/uL Eos # (Auto) 0.1 (0.0-0.4) X10*3/uL Baso # (Auto) 0.0 (0.0-0.2) X10*3/uL Abs Immat Gran (auto) 0.01 (0.00-0.03) X10*3/uL Absolute Neuts (auto) 2.5 (2.0-8.3) x10*3/uL Absolute Nucleated RBC 0.000 (0.0-0.012) X10*3/uL Nucleated RBC % (auto) 0.0 (0.0-0.2) /100WBC PT 13.9 H (10.0-13.1) SEC INR 1.2 H (0.9-1.1) APTT 34.2 (26.0-36.4) SEC Sodium 140 (135-145) mmol/L Potassium 4.1 (3.3-5.1) mmol/L Chloride 104 (96-108) mmol/L Carbon Dioxide 27 (22-29) mmol/L Anion Gap 13 (12-20) BUN 7 L (9-16) mg/dL Creatinine 0.65 (0.5-1.4) mg/dL Estim Creat Clear Calc 127.6 Estimated GFR > 60 Random Glucose 96 (60-115) mg/dL Calcium 9.1 (8.4-10.2) mg/dL Total Bilirubin 0.7 (0.0-1.0) mg/dL AST 51 H (5-37) U/L ALT 33 (0-40) U/L Alkaline Phosphatase 60 (39-117) U/L Total Protein 7.1 (6.5-8.0) g/dL Albumin 3.9 (3.5-5.0) g/dL Urine Color Urine Appearance Urine pH (5.0-9.0) Ur Specific [place] (1.005-1.025) Urine Protein (Neg-Trace) mg/dL Urine Glucose (UA) (Negative) mg/dL Urine Ketones (Negative) mg/dL Urine Blood (Negative) Urine Nitrite (Negative) Ur Leukocyte Esterase (Negative) Blood Type Antibody Screen 11/22/22 11/22/22 11/22/22 Range/Units 17:11 20:46 20:48 WBC (4.8-10.8) X10*3/uL RBC (4.60-5.80) X10*6/uL Hgb 11.9 L (14.0-18.0) g/dl Hct 34.1 L (42.0-52.0) % MCV (80.0-98.0) fL MCH (27.0-33.0) pg MCHC (31.0-36.0) g/dl RDW (11.0-16.0) % Plt Count (160-400) X10*3/uL MPV (9.4-12.4) fL Immature Gran % (Auto) (0.0-0.4) % Neut % (Auto) (45-73) % Lymph % (Auto) (20-40) % [place] % (Auto) (2-11) % Eos % (Auto) (0-4) % Baso % (Auto) (0-2) % Lymph # (Auto) (1.2-4.9) X10*3/uL [place] # (Auto) (0.1-1.2) X10*3/uL Eos # (Auto) (0.0-0.4) X10*3/uL Baso # (Auto) (0.0-0.2) X10*3/uL Abs Immat Gran (auto) (0.00-0.03) X10*3/uL Absolute Neuts (auto) (2.0-8.3) x10*3/uL Absolute Nucleated RBC (0.0-0.012) X10*3/uL Nucleated RBC % (auto) (0.0-0.2) /100WBC PT (10.0-13.1) SEC INR (0.9-1.1) APTT (26.0-36.4) SEC Sodium (135-145) mmol/L Potassium (3.3-5.1) mmol/L Chloride (96-108) mmol/L Carbon Dioxide (22-29) mmol/L Anion Gap (12-20) BUN (9-16) mg/dL Creatinine (0.5-1.4) mg/dL Estim Creat Clear Calc Estimated GFR Random Glucose (60-115) mg/dL Calcium (8.4-10.2) mg/dL Total Bilirubin (0.0-1.0) mg/dL AST (5-37) U/L ALT (0-40) U/L Alkaline Phosphatase (39-117) U/L Total Protein (6.5-8.0) g/dL Albumin (3.5-5.0) g/dL Urine Color Yellow Urine Appearance Clear Urine pH 6.5 (5.0-9.0) Ur Specific [place] >= 1.030 H (1.005-1.025) Urine Protein Negative (Neg-Trace) mg/dL Urine Glucose (UA) Negative (Negative) mg/dL Urine Ketones Negative (Negative) mg/dL Urine Blood Negative (Negative) Urine Nitrite Negative (Negative) Ur Leukocyte Esterase Negative (Negative) Blood Type A Positive Antibody Screen NEGATIVE <Mary Ruiz, ELECTROPHYSIOLOGY NURSE PRACTITIONER - Last Filed: 11/22/22 16:44> Lab Results 11/22/22 11/22/22 11/22/22 Range/Units 17:11 17:11 17:11 WBC 4.3 L (4.8-10.8) X10*3/uL RBC 3.39 L (4.60-5.80) X10*6/uL Hgb 12.3 L (14.0-18.0) g/dl Hct 35.4 L (42.0-52.0) % MCV 104.4 H (80.0-98.0) fL MCH 36.3 H (27.0-33.0) pg MCHC 34.7 (31.0-36.0) g/dl RDW 12.8 (11.0-16.0) % Plt Count 117 L (160-400) X10*3/uL MPV 8.9 L (9.4-12.4) fL Immature Gran % (Auto) 0.2 (0.0-0.4) % Neut % (Auto) 57.4 (45-73) % Lymph % (Auto) 29.3 (20-40) % [place] % (Auto) 10.5 (2-11) % Eos % (Auto) 1.9 (0-4) % Baso % (Auto) 0.7 (0-2) % Lymph # (Auto) 1.3 (1.2-4.9) X10*3/uL [place] # (Auto) 0.5 (0.1-1.2) X10*3/uL Eos # (Auto) 0.1 (0.0-0.4) X10*3/uL Baso # (Auto) 0.0 (0.0-0.2) X10*3/uL Abs Immat Gran (auto) 0.01 (0.00-0.03) X10*3/uL Absolute Neuts (auto) 2.5 (2.0-8.3) x10*3/uL Absolute Nucleated RBC 0.000 (0.0-0.012) X10*3/uL Nucleated RBC % (auto) 0.0 (0.0-0.2) /100WBC PT 13.9 H (10.0-13.1) SEC INR 1.2 H (0.9-1.1) APTT 34.2 (26.0-36.4) SEC Sodium 140 (135-145) mmol/L Potassium 4.1 (3.3-5.1) mmol/L Chloride 104 (96-108) mmol/L Carbon Dioxide 27 (22-29) mmol/L Anion Gap 13 (12-20) BUN 7 L (9-16) mg/dL Creatinine 0.65 (0.5-1.4) mg/dL Estim Creat Clear Calc 127.6 Estimated GFR > 60 Random Glucose 96 (60-115) mg/dL Calcium 9.1 (8.4-10.2) mg/dL Total Bilirubin 0.7 (0.0-1.0) mg/dL AST 51 H (5-37) U/L ALT 33 (0-40) U/L Alkaline Phosphatase 60 (39-117) U/L Total Protein 7.1 (6.5-8.0) g/dL Albumin 3.9 (3.5-5.0) g/dL Urine Color Urine Appearance Urine pH (5.0-9.0) Ur Specific [place] (1.005-1.025) Urine Protein (Neg-Trace) mg/dL Urine Glucose (UA) (Negative) mg/dL Urine Ketones (Negative) mg/dL Urine Blood (Negative) Urine Nitrite (Negative) Ur Leukocyte Esterase (Negative) Blood Type Antibody Screen 11/22/22 11/22/22 11/22/22 Range/Units 17:11 20:46 20:48 WBC (4.8-10.8) X10*3/uL RBC (4.60-5.80) X10*6/uL Hgb 11.9 L (14.0-18.0) g/dl Hct 34.1 L (42.0-52.0) % MCV (80.0-98.0) fL MCH (27.0-33.0) pg MCHC (31.0-36.0) g/dl RDW (11.0-16.0) % Plt Count (160-400) X10*3/uL MPV (9.4-12.4) fL Immature Gran % (Auto) (0.0-0.4) % Neut % (Auto) (45-73) % Lymph % (Auto) (20-40) % [place] % (Auto) (2-11) % Eos % (Auto) (0-4) % Baso % (Auto) (0-2) % Lymph # (Auto) (1.2-4.9) X10*3/uL [place] # (Auto) (0.1-1.2) X10*3/uL Eos # (Auto) (0.0-0.4) X10*3/uL Baso # (Auto) (0.0-0.2) X10*3/uL Abs Immat Gran (auto) (0.00-0.03) X10*3/uL Absolute Neuts (auto) (2.0-8.3) x10*3/uL Absolute Nucleated RBC (0.0-0.012) X10*3/uL Nucleated RBC % (auto) (0.0-0.2) /100WBC PT (10.0-13.1) SEC INR (0.9-1.1) APTT (26.0-36.4) SEC Sodium (135-145) mmol/L Potassium (3.3-5.1) mmol/L Chloride (96-108) mmol/L Carbon Dioxide (22-29) mmol/L Anion Gap (12-20) BUN (9-16) mg/dL Creatinine (0.5-1.4) mg/dL Estim Creat Clear Calc Estimated GFR Random Glucose (60-115) mg/dL Calcium (8.4-10.2) mg/dL Total Bilirubin (0.0-1.0) mg/dL AST (5-37) U/L ALT (0-40) U/L Alkaline Phosphatase (39-117) U/L Total Protein (6.5-8.0) g/dL Albumin (3.5-5.0) g/dL Urine Color Yellow Urine Appearance Clear Urine pH 6.5 (5.0-9.0) Ur Specific [place] >= 1.030 H (1.005-1.025) Urine Protein Negative (Neg-Trace) mg/dL Urine Glucose (UA) Negative (Negative) mg/dL Urine Ketones Negative (Negative) mg/dL Urine Blood Negative (Negative) Urine Nitrite Negative (Negative) Ur Leukocyte Esterase Negative (Negative) Blood Type A Positive Antibody Screen NEGATIVE <Darek Peace MD - Last Filed: 11/22/22 21:55> Radiology Impression Discussion of test interpretation with radiology: I have reviewed the radiologist's reading. <Darek Peace MD - Last Filed: 11/22/22 21:55> Radiologist Impression: EXAMINATION: GI BLEED WITH AND WITHOUT IV CONTRAST CLINICAL INFORMATION: Blood per rectum. Abdominal pain.? COMPARISON: Previous CT of the abdomen and pelvis most recent February 2021? TECHNIQUE: Axial images through the abdomen and pelvis without IV contrast. Axial images through the abdomen and pelvis following following IV contrast and arterial phase and delayed two-minute imaging following IV contrast was performed. This CT examination was performed using dose optimization techniques as appropriate, variously including the following: *Automated exposure control *Adjustment of mA and/or kV according to patient size (this includes techniques or standardized protocols for targeted exams where dose is matched to indication/reason for exam; i.e. extremities or head) *Use of iterative reconstruction technique FINDINGS: There is active GI bleeding seen in the right side of the distal sigmoid colon or upper rectum for example axial image 74 series 7. Delayed images in this region demonstrate increased enhancement. There is mild wall thickening seen in this region. Small and large bowel is otherwise unremarkable. The appendix is unremarkable. 12 mm nodule at the right lung base axial image 11 series 13. The liver is low in attenuation suggestive of fatty infiltration. No focal liver lesion or biliary duct dilatation. Normal gallbladder. Normal spleen. Normal pancreas. Normal adrenal glands and kidneys. Severe atherosclerotic disease. No aneurysm. No ascites or adenopathy. No hernia. Review of bone windows demonstrates degenerative changes of the spine and scoliosis. CT/CT gi bleed abd pel wo/w IVcon IMPRESSION: Active GI bleeding in the distal sigmoid colon or upper rectum. ? 12 mm nodule in the right lower lobe adjacent to the diaphragm. Follow-up chest CT scan recommended. ? Findings were communicated to Dr. Peace by telephone on 09/21/2023 8:12 PM Dictated By: Ashley King MD Signed By: <Electronically signed by Ashley King MD in OV>11/22/222015 <Darek Peace MD - Last Filed: 11/22/22 21:55> Critical Care Time Critical Care Time Critical Care Time: Yes <Darek Peace MD - Last Filed: 11/22/22 21:55> Total Critical Care Time: 65 <Darek Peace MD - Last Filed: 11/22/22 21:55> Attestation: Critical Care: The patient was critically ill with a high probability of imminent or life threatening deterioration. I spent greater than 30 minutes of discontinuous time evaluating the patient,delivering critical care at the bedside, discussing and evaluating pertinent data with consultants. Critical care time does not include time spent performing separately billable procedures or teaching. Total time spent performing critical care was 65 minutes. <Yusef Peace MD - Last Filed: 11/22/22 21:55> Discharge Plan Discharge Clinical Impression: Acute lower gastrointestinal bleeding <Mary Ruiz CNP - Last Filed: 11/22/22 16:44> Patient Disposition: [facility] <Mary Ruiz CNP - Last Filed: 11/22/22 16:44> Transfer Details: ED to ED transfer [facility] <Mary Ruiz CNP - Last Filed: 11/22/22 16:44> ED to ED transfer [facility] <Darek Peace MD - Last Filed: 11/22/22 21:55> Prescriptions: No Action prednisone 20 mg tablet 40 mg PO DAILY Qty: 8 0RF albuterol sulfate 90 mcg/actuation HFA aerosol inhaler 2 puff inhalation QID PRN (Reason: shortness of breath or wheezing) Qty: 6.7 0RF <Mary Ruiz CNP - Last Filed: 11/22/22 16:44>
[2022-11-22 16:41] VITALS: BP 150/81; PULSE 91; RESP 16; TEMP 36.8; O2SAT 97; BMI 24.4
--- NOTE | 2022-11-22 16:54 | ECG_ITS ---
Test Reason : GI BLEED Blood Pressure : / mmHG Vent. Rate : 085 BPM Atrial Rate : 000 BPM P-R Int : 000 ms QRS Dur : 140 ms QT Int : 364 ms P-R-T Axes : 000 010 023 degrees QTc Int : 433 ms Atrial fibrillation Right bundle branch block Abnormal ECG When compared with ECG of 28-MAR-2021 10:03, No significant change was found Referred By: Mary Ruiz Electronically Signed By:RIGOBERTO KEVIN
[2022-11-22 17:14] VITALS: PULSE 93; RESP 16; O2SAT 96
[2022-11-22 17:16] LABS: MANUAL DIFF FLAG NO
--- NOTE | 2022-11-22 17:17 | PC.NURSE ---
Alert and oriented, resp even and unlabored. Reporting mild abd pain that started this morning along with the bloody stools. States he is feeling dizzy. IV established, labs/type and scree drawn and sent. Pt denies having previous blood transfusions.
[2022-11-22 17:20] LABS: Basophils Percent Auto 0.7 % (0-2); Eosinophils Absolute Auto 0.1 X10*3/uL (0.0-0.4); Eosinophils Percent Auto 1.9 % (0-4); Hematocrit 35.4 % (42.0-52.0); Hemoglobin 12.3 g/dl (14.0-18.0); Imm Gran Abs Auto 0.01 X10*3/uL (0.00-0.03); Imm Gran Pct Auto 0.2 % (0.0-0.4); Lymphocytes Absolute Auto 1.3 X10*3/uL (1.2-4.9); Lymphocytes Percent Auto 29.3 % (20-40); Mean Corpuscular HGB Conc 34.7 g/dl (31.0-36.0); Mean Corpuscular Hemoglobin 36.3 pg (27.0-33.0); Mean Corpuscular Volume 104.4 fL (80.0-98.0); Mean Platelet Volume 8.9 fL (9.4-12.4); Monocytes Absolute Auto 0.5 X10*3/uL (0.1-1.2); Monocytes Percent Auto 10.5 % (2-11); Neutrophils Absolute Auto 2.5 x10*3/uL (2.0-8.3); Neutrophils Percent Auto 57.4 % (45-73); Platelet Count 117 X10*3/uL (160-400); Red Blood Count 3.39 X10*6/uL (4.60-5.80); Red Cell Distribution Width 12.8 % (11.0-16.0); White Blood Count 4.3 X10*3/uL (4.8-10.8)
[2022-11-22 17:34] LABS: Alanine Aminotransferase 33 U/L (0-40); Albumin Level 3.9 g/dL (3.5-5.0); Alkaline Phosphatase 60 U/L (39-117); Anion Gap 13 (12-20); Aspartate Amino Transferase 51 U/L (5-37); Bilirubin Total 0.7 mg/dL (0.0-1.0); Blood Urea Nitrogen 7 mg/dL (9-16); Calcium 9.1 mg/dL (8.4-10.2); Carbon Dioxide 27 mmol/L (22-29); Chloride 104 mmol/L (96-108); Creatinine Clr Calc Pharmacy 127.6; Estimated Glomerular Filt Rate > 60; Glucose Random 96 mg/dL (60-115); Potassium 4.1 mmol/L (3.3-5.1); Sodium 140 mmol/L (135-145); Total Protein 7.1 g/dL (6.5-8.0)
--- NOTE | 2022-11-22 17:47 | PC.NURSE ---
Ambulated to bathroom with steady gait, denied any dizziness with standing.
[2022-11-22 17:54] VITALS: BP 113/60; PULSE 88; RESP 18; O2SAT 96
[2022-11-22 17:59] LABS: INTERNATIONAL NORM RATIO 1.2 (0.9-1.1); Prothrombin Time 13.9 SEC (10.0-13.1)
[2022-11-22 18:35] VITALS: BP 122/71; PULSE 92; RESP 14; O2SAT 97
[2022-11-22] MEDS: iohexoL 350 MG/ML 100 ML INFUS..BTL IV (19:35)
[2022-11-22 20:45] LABS: Partial Thromboplastin Time 34.2 SEC (26.0-36.4)
[2022-11-22 20:54] LABS: Hematocrit 34.1 % (42.0-52.0); Hemoglobin 11.9 g/dl (14.0-18.0)
[2022-11-22 20:56] LABS: Appearance Urine Clear; Color Urine Yellow; Glucose Urine UA Negative (Negative); Leukocyte Esterase Urine Negative (Negative); Nitrite Urine Negative (Negative); PH 6.5 (5.0-9.0); Specific Gravity - Urine >= 1.030 (1.005-1.025); Urine Blood Negative (Negative); Urine Ketones Negative (Negative); Urine Protein Negative (Neg-Trace)
[2022-11-22] MEDS: Hum Prothrombin Cplx(PCC)4Fact 2,000 UNIT in Container,Empty 0 ML 480 UNIT IV (20:57)
[2022-11-22 21:06] VITALS: BP 136/82; PULSE 92; RESP 18; O2SAT 97
--- NOTE | 2022-11-22 21:20 | PC.NURSE ---
Pt aox3. Medicated as ordered. Tolerated well. Will continue to monitor.
[2022-11-22 22:01] LABS: COVID-19 Test Negative (Negative); IDNOW Serial# 6674DD1D
[2022-11-22 22:10] VITALS: BP 119/78; PULSE 90; RESP 13; TEMP 36.7; O2SAT 97
--- NOTE | 2022-11-22 22:27 | MHC.EDTECH ---
[facility] called at 2132 per spoke with Sarah she stated they are closed to transfers,Provider aware. [facility] called at 2133 per gave patient demographics,then asked to speak with . At 2145 accepted patient to [facility] called at 2144 for a [facility] transfer spoke with Sarah she stated she will try to pass call,if unable to she will send a crew within two hours. was made aware of plan.
--- NOTE | 2022-11-23 01:34 | PC.NURSE ---
Report given to nurse Jaeger at [facility]. Pt being transferred via EMS and aware of plan of care.
== END 2022-11-23 01:35 | disposition short-term general hospital (02) ==
PROVIDERS: Nurse Practitioner Family; Emergency Provider Emergency Medicine Emergency Medical Services; PCP Internal Medicine
DX: K92.2 Gastrointestinal hemorrhage, unspecified (principal); R10.9 Unspecified abdominal pain; R91.1 Solitary pulmonary nodule; Z20.822 Contact with and (suspected) exposure to COVID-19; I48.91 Unspecified atrial fibrillation; F10.10 Alcohol abuse, uncomplicated; F17.210 Nicotine dependence, cigarettes, uncomplicated; Z79.01 Long term (current) use of anticoagulants
CPT/HCPCS: 36415; 37195; 74178; 80053; 81003; 85014; 85018; 85025; 85610; 85730; 86850; 86900; 86901; 87635; 93005; 99285; J7168; Q9967